=== PATIENT | male | born 1955 | race Caucasian/White ===

== ENCOUNTER 2023-11-13 13:43 | Observation (INO) ==
[2023-11-13] MEDS ORDERED: MAG HYDROX/AL HYDROX/SIMETH 30 ML ORAL.SUSP PO PRN (17:27)
[2023-11-13] MEDS ORDERED: DEXTROSE 31 GM ORAL.SUSP PO PRN (17:27)
[2023-11-13] MEDS ORDERED: DEXTROSE 50% 50 ML VIAL IV PRN (17:27)
[2023-11-13] MEDS ORDERED: MAGNESIUM HYDROXIDE 30 ML ORAL.SUSP PO PRN (17:27)
[2023-11-13] MEDS ORDERED: ONDANSETRON 4 MG/2 ML VIAL IV PRN (17:27)
[2023-11-13] MEDS: DEXTROSE 5%-1/2NS W/20MEQ KCL 1,000 ML IV SCH (17:58)
[2023-11-13 18:01] LABS: Hematocrit 45.1 % (40.1-51.0); Hemoglobin 15.2 g/dL (13.7-17.5); Mean Cell Volume 82.4 fL (80.0-100.0); Mean Corpuscular HGB Conc 33.7 g/dL (31.0-36.0); Mean Platelet Volume 9.2 fL (8.8-12.5); Platelet Count 174 K/mcL (140-440); RBC 5.47 M/mcL (4.63-6.08); Red Cell Distribution Width 12.8 % (11.5-14.5); WBC 8.3 K/mcL (4.5-11.0)
[2023-11-13] MEDS: oxyCODONE/APAP 5/325MG TABLET PO PRN (18:07)
[2023-11-13 18:22] LABS: Blood Urea Nitrogen 26 mg/dL (8-23); Calcium 9.3 mg/dL (8.6-10.4); Carbon Dioxide 27 mmol/L (22-30); Chloride 95 mmol/L (96-108); Glomerular Filtration Rate 56; Glucose 117 mg/dL (70-105)
[2023-11-13] MEDS: INSULIN LISPRO 1 UNIT/0.01 ML UNIT SQ SCH (20:47)
[2023-11-13] MEDS: ATORVASTATIN 10 MG TABLET PO SCH (20:48)
[2023-11-13] MEDS: 0.9 % SODIUM CHLORIDE 10 ML SYRINGE IV SCH (20:48)
[2023-11-14] MEDS ORDERED: PHENYLEPHRINE 10 MG/ML VIAL ONE (06:00)
[2023-11-14] MEDS: metFORMIN 500 MG TABLET PO SCH (07:49)
[2023-11-14] MEDS: morphine 4 MG/ML VIAL IV PRN (09:08)
[2023-11-14] MEDS: LISINOPRIL 10 MG TABLET PO SCH (09:30)
[2023-11-14] MEDS: FLUoxetine HCL 10 MG CAPSULE PO SCH (09:30)
[2023-11-14] MEDS ORDERED: IPRATROPIUM/ALBUTEROL 3 ML AMPUL.NEB NEB PRN ×2 (10:30→16:53)
[2023-11-14] MEDS ORDERED: SCOPOLAMINE 1 PATCH PATCH TOPICAL PRN (10:30)
[2023-11-14] MEDS ORDERED: oxyCODONE/APAP 5/325MG TABLET PO PRN (12:23)
[2023-11-14] MEDS ORDERED: PROPOFOL 200 MG/20 ML VIAL IV ONE (15:15)
[2023-11-14] MEDS: ceFAZolin 2 GM in DEXTROSE 5% IN WATER 50 ML IV SCH (16:00)
[2023-11-14] MEDS ORDERED: LIDOCAINE 2% PF 5 ML VIAL ONE (16:01)
[2023-11-14] MEDS ORDERED: SUCCINYLCHOLINE 200 MG/10 ML VIAL IV ONE (16:01)
[2023-11-14] MEDS ORDERED: ROCURONIUM 10 MG/ML ML IV ONE (16:01)
[2023-11-14] MEDS ORDERED: fentaNYL 100 MCG/2 ML VIAL ONE (16:04)
[2023-11-14] MEDS ORDERED: MIDAZOLAM 2 MG/2 ML VIAL ONE (16:04)
[2023-11-14] MEDS: IOVERSOL 20 ML VIAL IJ ONE (16:30)
[2023-11-14] MEDS: GENTAMICIN PER PHARMACY IV ONE (16:30)
[2023-11-14] MEDS: GENTAMICIN SULFATE 240 MG in 0.9 % SODIUM CHLORIDE 250 ML IV SCH (16:30)
[2023-11-14] MEDS ORDERED: SUGAMMADEX SODIUM 200 MG/2 ML VIAL IV ONE (16:42)
[2023-11-14] MEDS ORDERED: ONDANSETRON 4 MG/2 ML VIAL ONE (16:47)
[2023-11-14] MEDS: LIDOCAINE 2% URO-JET 10 ML JEL.PF.APP UR ONE (16:50)
[2023-11-14] MEDS ORDERED: ONDANSETRON 4 MG/2 ML VIAL IV PRN (16:53)
[2023-11-14] MEDS ORDERED: fentaNYL 100 MCG/2 ML VIAL IV PRN (16:53)
[2023-11-14] MEDS ORDERED: HYDROcodone/APAP 5/325MG TABLET PO PRN (18:25)
[2023-11-14] MEDS: LACTATED RINGERS 1,000 ML IV SCH (18:29)
[2023-11-14] MEDS: INSULIN DEGLUDEC SUB-Q SCH (20:36)
[2023-11-14] MEDS: INSULIN GLARGINE, HUMAN 1 UNIT/0.01 ML SQ ONE (21:34)
[2023-11-15] MEDS ORDERED: INSULIN GLARGINE, HUMAN 1 UNIT/0.01 ML SQ SCH (21:00)
[2023-11-27 10:09] LABS: Calculus Weight 11 mg
[2023-12-12] MEDS ORDERED: [UNRECOGNIZED DRUG - OTHER] SUB-Q SCH (09:00)
[2023-12-12] MEDS ORDERED: IXEKIZUMAB 80 MG/ML SUB-Q SCH (09:00)
== END 2023-11-15 13:13 | disposition home or self-care (01) ==
LOC: MEDSUR → PREINTOOBSV 11-14 14:43
PROVIDERS: ADMIT Urology; ATTEND Urology